=== PATIENT | male | born 1960 | race Caucasian/White ===

== ENCOUNTER 2017-10-05 12:24 | Emergency (ER) | payer OTHER ==
--- NOTE | 2017-10-05 13:53 | ED Physician Documentation ---
PD HPI CHEST PAIN - Stated complaint Stated Complaint: HIGH BP - Chief complaint Chief Complaint: General - History obtained from History obtained from: Patient - History of Present Illness Timing - onset: Today (he has not had chest pain nor dyspnea. He was noted to have very high BP in the office and so had ECG done which showed inverted T waves anteriorly (and pacer capture). PCP talked with [facility], reportedly, and referred to ED for further evaluation. Di not get copy of prior ECG that I can tell though. He went to PCP today due to eyes feeling itchy and watery. No cough nor URI symptoms. Only trigger on the obtaining ECG was that BP was elevated at 190 systolic.) Timing - details: Other (no chest pain nor dyspnea.) Quality: No: Pressure, Tightness Associated symptoms: No: Shortness of air, Diaphoresis, Nausea, Vomiting Recently seen: Not recently seen Review of Systems Constitutional: denies: Fever, Chills, Myalgias Eyes: reports: Irritation (for few days, having watery, red, itchy eyes. He says he did get a Rx from PCP for some eyedrops. He had taken some antihistamine meds for this the past day or two.). denies: Discharge Ears: denies: Ear pain Nose: denies: Rhinorrhea / runny nose, Congestion Throat: denies: Sore throat Cardiac: denies: Chest pain / pressure, Palpitations, Pedal edema, Calf pain Respiratory: denies: Dyspnea, Cough, Wheezing GI: denies: Nausea, Vomiting Skin: denies: Rash Musculoskeletal: denies: Extremity swelling PD PAST MEDICAL HISTORY - Past Medical History Cardiovascular: Hypertension Respiratory: None Neuro: None Endocrine/Autoimmune: None - Past Surgical History Past Surgical History: Yes HEENT: Cochlear implant - Present Medications Home Medications: Ambulatory Orders Medication Instructions Recorded Confirmed Losartan [Cozaar] 100 mg PO DAILY 07/21/14 07/21/14 cloNIDine [Catapres] 0.1 mg PO BID 07/21/14 07/21/14 Aspirin [Kevin] 325 mg PO DAILY 10/05/17 10/05/17 Carvedilol [Coreg] 25 mg PO BID 10/05/17 10/05/17 - Allergies Allergies/Adverse Reactions: Allergies Allergy/AdvReac Type Severity Reaction Status Date / Time No Known Drug Allergies Allergy Verified 10/05/17 12:38 - Social History Does the pt smoke?: No Smoking Status: Never smoker Does the pt drink ETOH?: No Does the pt have substance abuse?: No - Immunizations Immunizations are current?: Yes - POLST Patient has POLST: No PD ED PE NORMAL - Vitals Vital signs reviewed: Yes - General General: Alert and oriented X 3, No acute distress, Well developed/nourished - HEENT HEENT: PERRL (minimal redness without edema of the conjunctiva. ), Pharynx benign - Neck Neck: Supple, no meningeal sign, No adenopathy, No JVD - Cardiac Cardiac: RRR, No murmur - Respiratory Respiratory: Clear bilaterally - Abdomen Abdomen: Soft, Non tender - Derm Derm: Normal color, Warm and dry - Extremities Extremities: No tenderness to palpate, Normal ROM s pain, No edema, No calf tenderness / cord - Neuro Neuro: Alert and oriented X 3, No motor deficit, Normal speech - Psych Psych: Normal mood, Normal affect Results - Vitals Vitals: Vital Signs - 24 hr 10/05/17 10/05/17 10/05/17 12:34 15:38 15:49 Temperature 36.3 C L 36.6 C Heart Rate 69 88 Respiratory 16 18 Rate Blood Pressure 180/94 H 199/116 H 198/114 H O2 Saturation 95 100 Oxygen O2 Source Room air - EKG (time done) 13:39 Rate: Rate (enter#) (61) Rhythm: Paced (with ventricular capture) Ischemia: T wave inversion Compare to prior EKG: Unchanged from prior EKG (obtained from [facility]. The ECG from the office showed more marked T wave inversion anteriorly and somewhat different axis, c/w likely lead transposition. ) - Labs Labs: Laboratory Tests 10/05/17 10/05/17 14:30 14:30 Sodium 139 Potassium 4.7 Chloride 102 Carbon Dioxide 28 Anion Gap 9.0 BUN 22 H Creatinine 1.1 Estimated GFR (MDRD) 69 L Glucose 101 H Calcium 9.5 Magnesium 1.8 Total Bilirubin 1.1 H AST 19 ALT 23 Alkaline Phosphatase 55 Troponin I < 0.04 Total Protein 6.9 Albumin 4.2 Globulin 2.7 Albumin/Globulin Ratio 1.6 Lipase 14 L PD MEDICAL DECISION MAKING - ED course Complexity details: reviewed results (ECG from [facility] had similar pattern to ED ECG. The one from the office today had larger amplitude to the T wave inversions anteriorly and different axis, likely consistent with lead transposition. He is without symptoms. He says his BP has been running high/ normal at 140-160 systolic, so can increase his BP meds some. Given extra dose of Clonidine here. Without symptoms though, would not want to aggressively treat HTN here in ED per AHA JNC recommendations. ), considered differential, d/ w patient Departure - Departure Disposition: 01 Home, Self Care Clinical Impression: Abnormal EKG Hypertension Qualifiers: Hypertension type: unspecified Qualified Code(s): I10 - Essential (primary) hypertension Condition: Stable Record reviewed to determine appropriate education?: Yes Comments: Increase her Catapres to 0.2 twice daily from the 0.1 mg currently. Other medicines the same. Your electrolytes and troponin test are normal here entheses the troponin looks for signs of heart injury). Your EKG from the cardiology office looks similar to the one we did here today. It does not look to be changed significantly. Discharge Date/Time: 10/05/17 15:49
[2017-10-05 14:51] LABS: ALBUMIN 4.2 g/dL (3.2-5.5); ALBUMIN/GLOBULIN RATIO 1.6 (1.0-2.2); BILIRUBIN,TOTAL 1.1 mg/dL (0.2-1.0); CALCIUM 9.5 mg/dL (8.5-10.3); CREATININE 1.1 mg/dL (0.6-1.2); MAGNESIUM 1.8 mg/dL (1.7-2.8); TOTAL PROTEIN 6.9 g/dL (6.7-8.2)
[2017-10-05] MEDS ORDERED: cloNIDine 0.1 MG TABLET PO STA (15:38)
[2017-10-05 15:50] VITALS: BP 198/114
== END 2017-10-05 15:49 | disposition home or self-care (01) ==
LOC: ED 12:24
DX: R94.31 Abnormal electrocardiogram [ECG] [EKG] (principal); I10 Essential (primary) hypertension
CPT/HCPCS: 36415; 80053; 83690; 83735; 84484; 93005; 99283; 99284; A9270

== ENCOUNTER 2017-10-09 23:15 | Outpatient (CLI) | payer OTHER | END 2017-10-09 23:16 | disposition EMS.NT | LOC: EMS 23:15 | PROVIDERS: ATTEND Surgery | DX: R03.0 Elevated blood-pressure reading, without diagnosis of hypertension (principal) ==

== ENCOUNTER 2017-10-31 11:37 | Outpatient (CLI) | payer OTHER | END 2017-10-31 11:38 | disposition home or self-care (01) | LOC: RT 11:37 | PROVIDERS: ATTEND Physician Assistant | DX: I48.91 Unspecified atrial fibrillation (principal); I48.92 Unspecified atrial flutter | CPT/HCPCS: 93005 ==

== ENCOUNTER 2018-10-14 17:39 | Emergency (ER) | payer OTHER ==
[2018-10-14] MEDS ORDERED: HYDROcod/ACETAM 5/325 MG TABLET PO STA (17:58)
[2018-10-14] MEDS ORDERED: TETANUS/DIPHTHERIA/PERTUSSIS 0.5 ML SYRINGE IM ONE (17:58)
--- NOTE | 2018-10-14 18:00 | ED Physician Documentation ---
PD HPI HEAD INJURY - Stated complaint Stated Complaint: GLF - LONG/EYE PX - Chief complaint Chief Complaint: Neuro - History obtained from History obtained from: Patient - History of Present Illness Mechanism of head injury: Fell (He was at work today, missed a step and fell forward onto concrete. He scraped his right hand and both knees and hit his forehead. He has a moderate headache. Tetanus is not up-to-date. No loss of consciousness. He is not anticoagulated.) Review of Systems Constitutional: reports: Reviewed and negative Cardiac: reports: Reviewed and negative Respiratory: reports: Reviewed and negative PD PAST MEDICAL HISTORY - Past Medical History Cardiovascular: Hypertension Respiratory: None Endocrine/Autoimmune: None - Past Surgical History Past Surgical History: Yes Cardiovascular: Pacemaker HEENT: Cochlear implant - Present Medications Home Medications: Ambulatory Orders Medication Instructions Recorded Confirmed Losartan [Cozaar] 100 mg PO DAILY 07/21/14 07/21/14 cloNIDine [Catapres] 0.1 mg PO BID 07/21/14 07/21/14 Aspirin [Kevin] 325 mg PO DAILY 10/05/17 10/05/17 Carvedilol [Coreg] 25 mg PO BID 10/05/17 10/05/17 Hydrocodone/Acetaminophen 1 - 2 each PO Q6H PRN #14 tablet 10/14/18 [Hydrocodon-Acetaminophen 5-325] - Allergies Allergies/Adverse Reactions: Allergies Allergy/AdvReac Type Severity Reaction Status Date / Time No Known Drug Allergies Allergy Verified 10/14/18 17:46 - Social History Does the pt smoke?: No Smoking Status: Never smoker Does the pt drink ETOH?: No Does the pt have substance abuse?: No - Immunizations Immunizations are current?: Yes - POLST Patient has POLST: No PD ED PE NORMAL - Vitals Vital signs reviewed: Yes - General General: Alert and oriented X 3, No acute distress - HEENT HEENT: PERRL, EOMI, Other (There is a small firm hematoma in the lateral left eyebrow, no other facial bony tenderness. No evidence of entrapment.) - Neck Neck: Supple, no meningeal sign, No bony TTP - Extremities Extremities: Other (He has an abrasion over the dorsum of the left fifth MCP without tenderness or limited range of motion. He also has abrasions over both patella but no bony tenderness or limited range of motion or difficulty walking.) - Neuro Neuro: Alert and oriented X 3, Normal speech Eye Opening: Spontaneous Motor: Obeys Commands Verbal: Oriented GCS Score: 15 - Psych Psych: Normal mood, Normal affect Results - Vitals Vitals: Vital Signs - 24 hr 10/14/18 17:43 Temperature 36.0 C L Heart Rate 72 Respiratory 18 Rate Blood Pressure 142/84 H O2 Saturation 97 Oxygen O2 Source Room air - Rads (name of study) Ct head Radiology: EMP read contemporaneously (NAD) Departure - Departure Disposition: Home, Self Care Clinical Impression: Abrasion, right knee, initial encounter, Abrasion, left knee, initial encounter Head injury Qualifiers: Encounter type: initial encounter Qualified Code(s): S09.90XA - Unspecified injury of head, initial encounter Facial contusion Qualifiers: Encounter type: initial encounter Qualified Code(s): S00.83XA - Contusion of other part of head, initial encounter Abrasion of left hand Qualifiers: Encounter type: initial encounter Qualified Code(s): S60.512A - Abrasion of left hand, initial encounter Fall from slip, trip, or stumble Qualifiers: Encounter type: initial encounter Qualified Code(s): W01.0XXA - Fall on same level from slipping, tripping and stumbling without subsequent striking against object, initial encounter Condition: Good Record reviewed to determine appropriate education?: Yes Instructions: ED Head Injury Closed Prescriptions: Hydrocodone/Acetaminophen [Hydrocodon-Acetaminophen 5-325] 1 - 2 each PO Q6H PRN #14 tablet PRN Reason: pain Comments: Call your doctor to arrange a follow-up appointment, make the next available appointment. In the interim, return anytime if worse or if new symptoms develop. Your blood pressure was elevated today on check into the emergency department. This does not mean that you have hypertension, it is a common phenomenon to come to the emergency department and have elevated blood pressure. I recommend that you see your primary care physician within the week to have it rechecked when you are feeling better.
--- NOTE | 2018-10-14 18:52 | CT Report ---
Reason: Head inj Procedure Date: 10/14/2018 Accession Number: [id number] / [id number] Procedure: CT - HEAD WO CPT Code: FULL RESULT: EXAM: CT HEAD EXAM DATE: 10/14/2018 06:37 PM. CLINICAL HISTORY: Head inj. COMPARISON: HEAD 09/26/2006 12:00 PM. TECHNIQUE: Multiaxial CT images were obtained from the foramen magnum to the vertex. Reformats: Sagittal and coronal. IV contrast: None. In accordance with CT protocol optimization, one or more of the following dose reduction techniques were utilized for this exam: automated exposure control, adjustment of mA and/or KV based on patient size, or use of iterative reconstructive technique. FINDINGS: Parenchyma: No intraparenchymal hemorrhage. No evidence of mass, midline shift, or CT findings of infarction. Valladares-white differentiation is distinct. Extraaxial Spaces: Normal for age. No subdural or epidural collections identified. Ventricles: Normal in size and position. Sinuses and Orbits: Imaged paranasal sinuses, orbits, and mastoids show no significant abnormality. Bones: There are findings of a right-sided cochlear implant. Previous right mastoidectomy. Other: None. IMPRESSION: 1. No acute or focal intracranial abnormality. 2. Right cochlear implant appears unremarkable. RADIA
[2018-10-14 19:11] VITALS: BP 107/58
== END 2018-10-14 19:10 | disposition home or self-care (01) ==
LOC: ED 17:39
DX: S09.90XA Unspecified injury of head, initial encounter (principal); S00.83XA Contusion of other part of head, initial encounter; S60.417A Abrasion of left little finger, initial encounter; W01.10XA Fall on same level from slipping, tripping and stumbling with subsequent striking against unspecified object, initial encounter; Y99.0 Civilian activity done for income or pay; I10 Essential (primary) hypertension; Z23 Encounter for immunization
CPT/HCPCS: 1040M; 70450; 90471; 99283

== ENCOUNTER 2019-05-25 09:00 | Outpatient (CLI) | payer BC ==
--- NOTE | 2019-05-26 15:46 | XRAY Report ---
Reason: ACUTE BRONCHITIS Procedure Date: 05/25/2019 Accession Number: [id number] / [id number] Procedure: WCP - Chest 2 View X-Ray CPT Code: 50009 FULL RESULT: EXAM: CHEST RADIOGRAPHY EXAM DATE: 05/25/2019 11:26 AM. CLINICAL HISTORY: Acute bronchitis. Cough and shortness of breath x1 week. COMPARISON: AP chest 07/21/2014. TECHNIQUE: 2 views. FINDINGS: Lungs/Pleura: No focal opacities or vascular congestion. Stable mildly prominent hilar vasculature. No pleural effusion or pneumothorax. Mild hyperinflation. Mediastinum: Normal heart size and mediastinal contour. Interval left subclavian pacer with leads in the right atrial appendage and the right ventricular apex. Other: No acute osseous findings. IMPRESSION: 1. No cardiopulmonary decompensation radiographically. 2. Interval pacemaker in expected position. RADIA
== END 2019-05-25 23:59 | disposition home or self-care (01) ==
LOC: DI.WCP 09:00 → EDSTATUS 12:32 → DI.WCP 23:59
PROVIDERS: ATTEND Physician Assistant Medical
DX: J20.9 Acute bronchitis, unspecified (principal); Z95.0 Presence of cardiac pacemaker
CPT/HCPCS: 71046

== ENCOUNTER 2021-09-11 12:12 | Emergency (ER) | payer OTHER ==
[2021-09-11 12:45] LABS: BASOPHILS % (AUTO) 0.2 %; EOSINOPHILS # (AUTO) 0.1 10^3/uL (0.0-0.7); EOSINOPHILS % (AUTO) 0.6 %; HCT - HEMATOCRIT 49.6 % (42.0-52.0); HGB - HEMOGLOBIN 17.3 g/dL (14.0-18.0); LYMPHOCYTES # (AUTO) 1.1 10^3/uL (1.5-3.5); LYMPHOCYTES % (AUTO) 5.6 %; MEAN CORPUSCULAR HEMOGLOBIN 32.2 pg (27.0-31.0); MEAN CORPUSCULAR HGB CONC 34.9 g/dL (32.0-36.0); MEAN CORPUSCULAR VOLUME 92.4 fL (80.0-94.0); MEAN PLATELET VOLUME 10.1 fL (7.4-11.4); MONOCYTES # (AUTO) 1.7 10^3/uL (0.0-1.0); MONOCYTES % (AUTO) 8.7 %; NEUTROPHILS # (AUTO) 16.3 10^3/uL (1.5-6.6); NEUTROPHILS % (AUTO) 84.4 %; PLT - PLATELET COUNT 303 10^3/uL (130-450); RED BLOOD COUNT 5.37 10^6/uL (4.70-6.10); RED CELL DISTRIBUTION WIDTH 12.1 % (12.0-15.0); WHITE BLOOD COUNT 19.4 x10^3/uL (4.8-10.8)
[2021-09-11 12:58] LABS: ALBUMIN 4.5 g/dL (3.2-5.5); ALBUMIN/GLOBULIN RATIO 1.4 (1.0-2.2); BILIRUBIN,TOTAL 1.3 mg/dL (0.2-1.0); CALCIUM 9.4 mg/dL (8.5-10.3); CREATININE 1.3 mg/dL (0.6-1.2); TOTAL PROTEIN 7.7 g/dL (6.7-8.2)
[2021-09-11 13:01] LABS: SLIDE REVIEW? Indicated
[2021-09-11 13:17] LABS: RBC MORPHOLOGY (MULTIPLE) NORMAL APPEARANCE (NORMAL)
[2021-09-11 13:18] LABS: DIFFERENTIAL COMMENT MANUAL=AUTO DIFF; PLATELET ESTIMATE, MANUAL NORMAL (130-450,000) (NORMAL); PLATELET MORPHOLOGY NORMAL APPEARANCE (NORMAL); WBC MORPHOLOGY (MULTIPLE) NORMAL APPEARANCE (NORMAL)
[2021-09-11] MEDS ORDERED: SODIUM CHLORIDE 0.9% 1,000 ML IV STA (14:21)
[2021-09-11] MEDS ORDERED: HYDROmorphone 1 MG/ML CARPUJECT IVP STA ×2 (14:34→16:28)
[2021-09-11] MEDS ORDERED: ONDANSETRON 4 MG/2 ML VIAL IVP STA (14:34)
[2021-09-11] MEDS ORDERED: iohexoL-300 100 ML VIAL ONE (14:35)
[2021-09-11] MEDS ORDERED: iohexoL-300 100 ML VIAL IVP ONE (15:05)
--- NOTE | 2021-09-11 15:17 | CT Report ---
PROCEDURE: Abdomen/Pelvis W INDICATIONS: abd pain, NV, CONTRAST: IV CONTRAST: Isovue 300 ml: 100 PO CONTRAST: *NO PO CONTRAST TECHNIQUE: After the administration of IV contrast, 5 mm thick sections acquired from the diaphragms to the symp hysis. 5 mm thick coronal and sagittal reformats were acquired. For radiation dose reduction, the f ollowing was used: automated exposure control, adjustment of mA and/or kV according to patient size. COMPARISON: None. FINDINGS: Image quality: Excellent. ABDOMEN: Lung bases: 4 mm solid nodule is seen in posterior medial aspect of left lower lobe series 4 image 23 . Bibasilar linear scarring/atelectasis also seen. Pacemaker leads are noted in right atrium and righ t ventricle. Heart size is normal, no pericardial effusion. Solid organs: Liver and spleen are normal in size and enhancement. Gallbladder is within normal aguilar its Biliary system is non dilated. Pancreas enhances normally. There is peripancreatic fat strandin g involving pancreatic head and uncinate process. No peripancreatic fluid collection. No adrenal nodu les. Kidneys demonstrate normal size and enhancement, without hydronephrosis. Peritoneum and bowel: There is questionable gastric wall thickening which may be due to underdistent ion. Low-grade gastritis cannot be entirely excluded. No discrete gastric wall mass. There is questio nable wall thickening involving third portion of duodenum adjacent to pancreatic head which may repre sent reactive inflammatory changes. Infectious or inflammatory duodenitis cannot be excluded. No othe r area of abnormal bowel wall thickening. No mesenteric fat stranding. No free fluid or free air. Sig moid diverticulosis is seen, no CT evidence of acute diverticulitis. Nodes and vessels: No retroperitoneal or mesenteric adenopathy by size criteria. Aorta and inferior vena cava are normal in size. Miscellaneous: Small umbilical hernia is seen containing fat only. PELVIS: Genitourinary: Bladder wall thickness is normal. Miscellaneous: Bilateral inguinal hernias are seen containing fat only. No inguinal lymphadenopathy. Bones: Bilateral pars defects at L5 level is seen with grade 1 anterolisthesis of L5 on S1 measures up to 1.2 cm in distance. Degenerative endplate changes at L3-4 through L5-S1 levels are seen. No cammy picious bony lesions. No vertebral body compression fractures. IMPRESSION: 1. Inflammatory changes adjacent to head and uncinate process of pancreas concerning for focal pancre atitis in this area suggest clinical correlation. No peripancreatic fluid collection. 2. Questionable gastric wall thickening and wall thickening involving and third portion of duodenum. This may be due to gastric underdistention and reactive inflammatory changes and duodenum secondary t o adjacent inflammation in head of pancreas. Low-grade gastritis and duodenitis cannot be excluded. 3. No bowel obstruction. No free fluid of free air. Sigmoid diverticulosis without CT evidence of acu te diverticulitis. 4. Incidentally noted of 4 mm solid nodule in left lower lobe. Consider CT chest follow-up in 12 reynaldo hs for evaluation of stability. 5. Bilateral pars defects at L5 level with 1.1 cm anterolisthesis of L5 on S1. No acute vertebral bod y compression fracture. Reviewed by: Bautista Strong MD on 09/11/2021 3:15 PM PST Approved by: Bautista Strong MD on 09/11/2021 3:15 PM PST Station ID: [id number]
[2021-09-11 15:39] LABS: BILIRUBIN,URINE NEGATIVE (NEGATIVE); CLARITY,URINE CLEAR (CLEAR); GLUCOSE, URINE (UA) >=1000 mg/dL (NEGATIVE); KETONES,URINE (UA) 15 mg/dL (NEGATIVE); LEUKOCYTE ESTERASE, URINE NEGATIVE (NEGATIVE); NITRITE,URINE NEGATIVE (NEGATIVE); OCCULT BLOOD,URINE NEGATIVE (NEGATIVE); PH,URINE 6.5 PH (5.0-7.5); PROTEIN,URINE 30 mg/dL (NEGATIVE); UROBILINOGEN,URINE 2 E.U./dL (NORMAL)
[2021-09-11 15:47] LABS: BACTERIA,URINE None Seen /HPF (None Seen); RBC,URINE None Seen /HPF (0-5); SQUAMOUS EPITHELIAL CELL,UR NONE SEEN (<= Few); WBC,URINE 0-3 /HPF (0-3)
--- NOTE | 2021-09-11 16:58 | ED Physician Documentation ---
PD HPI ABD PAIN - Stated complaint Stated Complaint: ABD PAIN - Chief complaint Chief Complaint: Abd Pain - History obtained from History obtained from: Patient - Additional information Additional information: Patient comes to the emergency department with chief complaint of upper abdominal pain that wraps around to his back for the past couple of days. He states it is like a deep ache that bores through to the back. He states has been nauseated and has had a few episodes of vomiting since onset of symptoms, but no vomiting since arriving in the emergency department. He denies any stool changes. No fevers or chills. No dysuria. He had pancreatitis once about 15 years ago. He has not had any surgical procedures on his abdomen. No other complaints at this time. Review of Systems Ten Systems: 10 systems reviewed and negative Constitutional: reports: Reviewed and negative Eyes: reports: Reviewed and negative Ears: reports: Reviewed and negative Nose: reports: Reviewed and negative Throat: reports: Reviewed and negative Cardiac: reports: Reviewed and negative Respiratory: reports: Reviewed and negative GI: reports: Abdominal Pain, Nausea, Vomiting : reports: Reviewed and negative Skin: reports: Reviewed and negative Musculoskeletal: reports: Reviewed and negative Neurologic: reports: Reviewed and negative Psychiatric: reports: Reviewed and negative Endocrine: reports: Reviewed and negative Immunocompromised: reports: Reviewed and negative PD PAST MEDICAL HISTORY - Past Medical History Cardiovascular: Hypertension Respiratory: None Endocrine/Autoimmune: None - Past Surgical History Past Surgical History: Yes Cardiovascular: Pacemaker HEENT: Cochlear implant - Present Medications Home Medications: Ambulatory Orders Medication Instructions Recorded Confirmed Losartan [Cozaar] 100 mg PO DAILY 07/21/14 07/21/14 cloNIDine [Catapres] 0.1 mg PO BID 07/21/14 07/21/14 Aspirin [Kevin] 325 mg PO DAILY 10/05/17 10/05/17 Carvedilol [Coreg] 25 mg PO BID 10/05/17 10/05/17 Hydrocodone/Acetaminophen 1 - 2 each PO Q6H PRN #14 tablet 10/14/18 [Hydrocodon-Acetaminophen 5-325] HYDROcod/ACETAM 5/325 [Tonica 5/325] 1 - 2 tablet PO Q6H PRN #14 tablet 09/11/21 Ondansetron Odt [Zofran] 4 mg TL Q6H PRN #10 tablet 09/11/21 - Allergies Allergies/Adverse Reactions: Allergies Allergy/AdvReac Type Severity Reaction Status Date / Time No Known Drug Allergies Allergy Verified 09/11/21 12:21 - Social History Does the pt smoke?: No Smoking Status: Never smoker Does the pt drink ETOH?: No Does the pt have substance abuse?: No - Immunizations Immunizations are current?: Yes - POLST Patient has POLST: No PD ED PE NORMAL - Vitals Vital signs reviewed: Yes - General General: Alert and oriented X 3, No acute distress, Well developed/nourished - HEENT HEENT: Atraumatic, PERRL, EOMI, Moist mucous membranes - Neck Neck: Supple, no meningeal sign - Cardiac Cardiac: RRR, No murmur, Strong equal pulses - Respiratory Respiratory: No respiratory distress, Clear bilaterally - Abdomen Abdomen: Soft, Non distended, Other (Mild tenderness across upper abdomen, No rebound or guarding) - Back Back: No CVA TTP - Derm Derm: Normal color, Warm and dry, No rash - Extremities Extremities: No deformity, No edema - Neuro Neuro: Alert and oriented X 3 - Psych Psych: Normal mood, Normal affect Results - Vitals Vitals: Vital Signs - 24 hr 09/11/21 09/11/21 09/11/21 12:21 15:33 15:52 Temperature 36.5 C 37.4 C Heart Rate 80 68 86 Respiratory 16 14 15 Rate Blood Pressure 137/78 H 124/78 115/97 H O2 Saturation 97 96 95 09/11/21 09/11/21 16:00 17:31 Temperature 37.3 C Heart Rate 84 90 Respiratory 15 16 Rate Blood Pressure 151/87 H 158/80 H O2 Saturation 93 93 Oxygen O2 Source Room air - Labs Labs: Laboratory Tests 09/11/21 09/11/21 09/11/21 12:41 12:41 15:00 WBC 19.4 H RBC 5.37 Hgb 17.3 Hct 49.6 MCV 92.4 MCH 32.2 H MCHC 34.9 RDW 12.1 Plt Count 303 MPV 10.1 Neut # (Auto) 16.3 H Lymph # (Auto) 1.1 L [place] # (Auto) 1.7 H Eos # (Auto) 0.1 Baso # (Auto) 0.0 Absolute Nucleated RBC 0.00 Band Neuts % (Manual) Not Reportable Abnorm Lymph % (Manual) Not Reportable Nucleated RBC % 0.0 Neutrophils # (Manual) Not Reportable Lymphocytes # (Manual) Not Reportable Monocytes # (Manual) Not Reportable Eosinophils # (Manual) Not Reportable Basophils # (Manual) Not Reportable Differential Comment MANUAL=AUTO DIFF Manual Slide Review Indicated WBC Morphology NORMAL APPEARANCE Platelet Estimate NORMAL (130-450,000) Platelet Morphology NORMAL APPEARANCE RBC Morph Micro Appear NORMAL APPEARANCE Sodium 132 L Potassium 4.0 Chloride 93 L Carbon Dioxide 30 Anion Gap 9.0 BUN 20 Creatinine 1.3 H Estimated GFR (MDRD) 56 L Glucose 261 H Calcium 9.4 Total Bilirubin 1.3 H AST 18 ALT 24 Alkaline Phosphatase 61 Total Protein 7.7 Albumin 4.5 Globulin 3.2 Albumin/Globulin Ratio 1.4 Lipase 172 H Urine Color YELLOW Urine Clarity CLEAR Urine pH 6.5 Ur Specific [place] 1.025 Urine Protein 30 H Urine Glucose (UA) >=1000 H Urine Ketones 15 H Urine Occult Blood NEGATIVE Urine Nitrite NEGATIVE Urine Bilirubin NEGATIVE Urine Urobilinogen 2 H Ur Leukocyte Esterase NEGATIVE Urine RBC None Seen Urine WBC 0-3 Ur Squamous Epith Cells NONE SEEN Urine Bacteria None Seen Ur Microscopic Review INDICATED Urine Culture Comments NOT INDICATED - Rads (name of study) CT scan of the abdomen and pelvis Radiology: Final report received, EMP read indepedently, See rad report (Focal pancreatitis; no abnormalities of the biliary system or gallbladder. No pseudocyst or abscess. Possible mild thickening of stomach and third part of duodenum) PD MEDICAL DECISION MAKING - ED course Complexity details: reviewed results, re-evaluated patient, considered differential, d/w patient ED course: Patient was treated symptomatically in the emergency department with IV fluids, Zofran, and Dilaudid. Labs showed a lipase of 172 and a white count of 19,000. Patient sent for CT scan of the abdomen and pelvis, and this showed focal pancreatitis with most likely so sympathetic changes in adjacent structures. I discussed with the patient symptomatic management at home, including clear liquids only for the next 2 days, as well as analgesia and antimedics. We have discussed the indications for return, including development of fever or severe abdominal pain, or the inability to hold the meds down. Patient may otherwise follow-up with his primary care physician. Departure - Departure Disposition: 01 Home, Self Care Clinical Impression: Pancreatitis Qualifiers: Chronicity: acute Pancreatitis type: unspecified pancreatitis type Acute pancreatitis complication: no infection or necrosis Qualified Code(s): K85.90 - Acute pancreatitis without necrosis or infection, unspecified Gastritis Qualifiers: Gastritis type: unspecified gastritis Chronicity: acute Gastritis bleeding: without bleeding Qualified Code(s): K29.00 - Acute gastritis without bleeding Condition: Stable Instructions: ED Pancreatitis Prescriptions: HYDROcod/ACETAM 5/325 [Tonica 5/325] 1 - 2 tablet PO Q6H PRN #14 tablet PRN Reason: Pain Ondansetron Odt [Zofran] 4 mg TL Q6H PRN #10 tablet PRN Reason: Nausea / Vomiting Comments: Your labs showed that you do have a mild elevation of the enzymes produced by your pancreas, which can signal some inflammation of the pancreas. Your CT scan shows that the end of your pancreas is inflamed. This is also causing some inflammation of the part of your stomach and small intestine that are next to the inflamed part of the pancreas. These all together are most likely the cause of your pain and nausea. The good news is that your gallbladder does not appear inflamed at all, and there is no evidence of any kind of blockage. You do not have any gallstones. The rest of your CT scan looked good. Most likely, your decrease in bowel movements is secondary to not eating much, as there is not a large amount of stool in your bowels on CT scan. As we have discussed, pancreatitis generally will go away on its own after a few days, but is greatly helped by taking only clear liquids, to allow the pancreas to rest and heal. The best is if you stick with just water for the next 2 days, though you can drink a sports drink such as Gatorade or an electrolyte solution like Pedialyte. If you tolerate these over the next couple of days, then you may graduate to something with a little more substance, such as some noodle soup or soup broth. You may continue to progress from there if your stomach tolerates this. Please take the nausea and pain medication as needed. If you develop fevers, yellowing of the whites of your eyes, severe pain, or inability to hold your medications down, please return to the emergency department for reevaluation. Your prescriptions have been electronically transmitted to [facility] in [place]. Discharge Date/Time: 09/11/21 17:34
[2021-09-11 17:34] VITALS: BP 158/80
== END 2021-09-11 17:34 | disposition home or self-care (01) ==
LOC: ED 12:12
DX: K85.90 Acute pancreatitis without necrosis or infection, unspecified (principal); K29.00 Acute gastritis without bleeding; I10 Essential (primary) hypertension
CPT/HCPCS: 36415; 74177; 80053; 81001; 83690; 85025; 96361; 96374; 96375; 96376; 99284; J1170; Q9967; 81003; 87086

== ENCOUNTER 2021-09-16 08:00 | Outpatient (CLI) | payer OTHER ==
[2021-09-16 11:45] LABS: BASOPHILS # (AUTO) 0.1 10^3/uL (0.0-0.1); EOSINOPHILS # (AUTO) 0.3 10^3/uL (0.0-0.7); HCT - HEMATOCRIT 49.7 % (42.0-52.0); HGB - HEMOGLOBIN 17.1 g/dL (14.0-18.0); LYMPHOCYTES # (AUTO) 1.3 10^3/uL (1.5-3.5); LYMPHOCYTES % (AUTO) 11.1 %; MEAN CORPUSCULAR HGB CONC 34.4 g/dL (32.0-36.0); MEAN CORPUSCULAR VOLUME 92.9 fL (80.0-94.0); MEAN PLATELET VOLUME 10.3 fL (7.4-11.4); MONOCYTES # (AUTO) 1.1 10^3/uL (0.0-1.0); NEUTROPHILS # (AUTO) 8.4 10^3/uL (1.5-6.6); NEUTROPHILS % (AUTO) 73.8 %; PLT - PLATELET COUNT 379 10^3/uL (130-450); RED BLOOD COUNT 5.35 10^6/uL (4.70-6.10); RED CELL DISTRIBUTION WIDTH 11.9 % (12.0-15.0); WHITE BLOOD COUNT 11.3 x10^3/uL (4.8-10.8)
[2021-09-16 12:10] LABS: ESTIMATED AVERAGE GLUCOSE 220 mg/dL (70-100); HEMOGLOBIN A1c% 9.3 % (4.27-6.07)
[2021-09-16 12:33] LABS: ALBUMIN 3.7 g/dL (3.2-5.5); ALKALINE PHOSPHATASE 64 IU/L (42-121); ALT ALANINE AMINOTRANSFERASE 23 IU/L (10-60); AST ASPARTATE AMINOTRANSFERASE 21 IU/L (10-42); BILIRUBIN,TOTAL 0.9 mg/dL (0.2-1.0); BUN - BLOOD UREA NITROGEN 33 mg/dL (6-20); CALCIUM 9.8 mg/dL (8.5-10.3); CARBON DIOXIDE - CO2 32 mmol/L (21-32); CHLORIDE 90 mmol/L (101-111); CHOL/HDL RATIO 7.6 (<5.0); CHOLESTEROL 228 mg/dL; CREATININE 1.8 mg/dL (0.6-1.2); GFR - MDRD 38 (>89); GLUCOSE 327 mg/dL (70-100); HDL CHOLESTEROL 30 mg/dL; LDL CHOLESTEROL,CALCULATED 154 mg/dL; LDL/HDL RATIO 5.1 (<3.6); LIPASE 30 U/L (22-51); POTASSIUM 3.8 mmol/L (3.5-5.0); SODIUM 133 mmol/L (135-145); TOTAL PROTEIN 7.5 g/dL (6.7-8.2); TRIGLYCERIDES 218 mg/dL; VLDL CHOLESTEROL 44 mg/dL
== END 2021-09-16 23:59 ==
LOC: LAB.WCP 08:00
PROVIDERS: ATTEND Family Medicine
DX: K86.1 Other chronic pancreatitis (principal); E11.9 Type 2 diabetes mellitus without complications
CPT/HCPCS: 36415; 80053; 80061; 83036; 83690; 83721; 85025

== ENCOUNTER 2021-09-29 14:27 | Outpatient (CLI) | payer OTHER ==
--- NOTE | 2021-09-29 16:21 | Ultrasound Report ---
PROCEDURE: Abdomen Complete INDICATIONS: PANCREATITIS TECHNIQUE: Real-time scanning was performed of the abdominal and retroperitoneal organs, with image documentatio n. COMPARISON: None. FINDINGS: Liver: Liver is normal in size and homogeneous in echotexture. Gallbladder: Biliary sludge without shadowing calculi. No pericholecystic fluid or gallbladder wall t hickening. Biliary ducts: Intrahepatic bile ducts are non-dilated. Extrahepatic bile duct caliber measures 3 m m. Normal is 6-7 mm or less in diameter, or 10 mm or less post-cholecystectomy. Pancreas: Obscured by overlying bowel gas Spleen: Spleen is normal in size and homogeneous in echotexture. Kidneys: Kidneys are normal in size and echotexture. Right kidney measures 11.6 cm long; left kidne y measures 10.7 cm long. No hydronephrosis or nephrolithiasis. No solid masses. Renal cortical cys t measures 9 mm. Aorta: Visualized aorta is normal in caliber at less than 3 cm. Iliacs: Proximal common iliac arteries are normal in caliber at less than 2.5 cm. IVC: Intrahepatic inferior vena cava is patent. Miscellaneous: No free abdominal fluid. IMPRESSION: Left renal cortical subcentimeters cyst. No hydronephrosis. Nonvisualized pancreas due to overlying bowel gas. Reviewed by: Edison Lloyd MD on 09/29/2021 3:20 PM [place] Approved by: Edison Lloyd MD on 09/29/2021 3:20 PM AKST Station ID: [id number]
== END 2021-09-29 14:28 | disposition home or self-care (01) ==
LOC: DI 14:27
PROVIDERS: ATTEND Physician Assistant
DX: K85.90 Acute pancreatitis without necrosis or infection, unspecified (principal); N28.1 Cyst of kidney, acquired

== ENCOUNTER 2023-10-20 07:17 | Outpatient (CLI) | payer OTHER ==
[2023-10-20 12:15] LABS: BASOPHILS # (AUTO) 0.1 10^3/uL (0.0-0.1); BASOPHILS % (AUTO) 0.5 %; EOSINOPHILS # (AUTO) 0.3 10^3/uL (0.0-0.7); EOSINOPHILS % (AUTO) 3.3 %; HCT - HEMATOCRIT 51.5 % (42.0-52.0); LYMPHOCYTES # (AUTO) 1.7 10^3/uL (1.5-3.5); LYMPHOCYTES % (AUTO) 18.6 %; MEAN CORPUSCULAR HEMOGLOBIN 31.5 pg (27.0-31.0); MEAN CORPUSCULAR VOLUME 95.4 fL (80.0-94.0); MEAN PLATELET VOLUME 10.7 fL (7.4-11.4); MONOCYTES # (AUTO) 0.7 10^3/uL (0.0-1.0); NEUTROPHILS # (AUTO) 6.4 10^3/uL (1.5-6.6); NEUTROPHILS % (AUTO) 69.2 %; PLT - PLATELET COUNT 324 10^3/uL (130-450); RED CELL DISTRIBUTION WIDTH 12.3 % (12.0-15.0); WHITE BLOOD COUNT 9.3 x10^3/uL (4.8-10.8)
[2023-10-20 12:23] LABS: ESTIMATED AVERAGE GLUCOSE 206 mg/dL (70-100); HEMOGLOBIN A1c% 8.8 % (4.27-6.07)
[2023-10-20 12:35] LABS: ALBUMIN 4.3 g/dL (3.2-5.5); ALBUMIN/GLOBULIN RATIO 1.7 (1.0-2.2); ALKALINE PHOSPHATASE 68 IU/L (42-121); ALT ALANINE AMINOTRANSFERASE 17 IU/L (10-60); AST ASPARTATE AMINOTRANSFERASE 13 IU/L (10-42); BILIRUBIN,TOTAL 0.7 mg/dL (0.2-1.0); BUN - BLOOD UREA NITROGEN 25 mg/dL (6-20); CALCIUM 9.8 mg/dL (8.5-10.3); CARBON DIOXIDE - CO2 30 mmol/L (21-32); CHLORIDE 100 mmol/L (101-111); CHOL/HDL RATIO 4.3 (<5.0); CHOLESTEROL 178 mg/dL; CREATININE 1.2 mg/dL (0.6-1.3); GFR - MDRD 61 (>89); GLUCOSE 278 mg/dL (74-104); HDL CHOLESTEROL 41 mg/dL; LDL CHOLESTEROL,CALCULATED 107 mg/dL; LDL/HDL RATIO 2.6 (<3.6); POTASSIUM 4.8 mmol/L (3.5-4.5); SODIUM 135 mmol/L (135-145); TOTAL PROTEIN 6.9 g/dL (6.4-8.9); TRIGLYCERIDES 151 mg/dL (48-352); VLDL CHOLESTEROL 30 mg/dL
[2023-10-20 12:42] LABS: THYROID STIMULATING HORMONE 2.43 uIU/mL (0.34-5.60)
[2023-10-20 12:44] LABS: CREATININE,URINE 168.1 mg/dL; MICROALBUM/CREATININE RATIO,UR 11.9 ug/mg (<30.0)
== END 2023-10-20 07:18 | disposition home or self-care (01) ==
LOC: LAB.N 07:17
PROVIDERS: ATTEND Physician Assistant
DX: I10 Essential (primary) hypertension (principal); E11.9 Type 2 diabetes mellitus without complications; E78.5 Hyperlipidemia, unspecified; Z12.5 Encounter for screening for malignant neoplasm of prostate
CPT/HCPCS: 36415; 80053; 80061; 82043; 82570; 83036; 83721; 84153; 84443; 85025

== ENCOUNTER 2024-04-06 11:54 | Emergency (ER) | payer OTHER, MEDICARE ==
[2024-04-06 12:34] VITALS: BP 109/65; O2SAT 97
--- NOTE | 2024-04-06 12:34 | Ultrasound Report ---
PROCEDURE: Duplex Ext Veins Left INDICATIONS: leg pain TECHNIQUE: Real-time imaging, as well as color and pulse Doppler interrogation, were performed of the lower extr emity deep veins from the inguinal ligament to the popliteal fossa. Attempted visualization of the ca lf veins was performed. COMPARISON: None. FINDINGS: Nonocclusive clot is present in the left popliteal vein. There is occlusive thrombus in the left posterior tibial veins and peroneal veins. IMPRESSION: Nonocclusive DVT involving the popliteal vein. Occlusive DVT in the calf. Reviewed by: William Humphrey MD on 04/06/2024 12:32 PM PDT Approved by: William Humphrey MD on 04/06/2024 12:32 PM PDT Station ID: [id number]
--- NOTE | 2024-04-06 12:41 | ED Physician Documentation ---
History of Present Illness - Stated complaint Stated Complaint: SWOLLEN LT LEG, PCP REFERAL - Chief complaint Chief Complaint: Ext Problem - History obtained from History obtained from: Patient - Additonal information Additional information: He has no history of thromboembolic disease. Did have A-fib and has PPM in place but not on anticoagulant. For last week he said soreness in his left calf without trauma, recent immobility or travel. No chest pain or trouble breathing. PD PAST MEDICAL HISTORY - Past Medical History Cardiovascular: Hypertension Respiratory: None Endocrine/Autoimmune: Type 2 diabetes GI: Pancreatitis - Past Surgical History Past Surgical History: Yes Cardiovascular: Pacemaker HEENT: Cochlear implant - Present Medications Home Medications: Ambulatory Orders Medication Instructions Recorded Confirmed Losartan [Cozaar] 100 mg PO DAILY 07/21/14 11/07/21 cloNIDine [Catapres] 0.1 mg PO BID 07/21/14 11/07/21 carvediloL [Coreg] 25 mg PO BID 10/05/17 11/07/21 Hydrocodone/Acetaminophen 1 - 2 each PO Q6H PRN #14 tablet 10/14/18 11/07/21 [Hydrocodon-Acetaminophen 5-325] Ondansetron Odt [Zofran] 4 mg TL Q6H PRN #10 tablet 09/11/21 11/07/21 Chlorthalidone 25 mg PO DAILY 11/07/21 11/07/21 Famotidine 40 mg PO DAILY 11/07/21 11/07/21 Apixaban [Eliquis] 2 tab PO BID #208 tab 04/06/24 - Allergies Allergies/Adverse Reactions: Allergies Allergy/AdvReac Type Severity Reaction Status Date / Time No Known Drug Allergies Allergy Verified 04/06/24 12:39 - Social History Does the pt smoke?: No Smoking Status: Never smoker Does the pt drink ETOH?: No Does the pt have substance abuse?: No - Immunizations Immunizations are current?: Yes - POLST Patient has POLST: No PD ED PE NORMAL - Vitals Vital signs reviewed: Yes - General General: Alert and oriented X 3, No acute distress - Extremities Extremities: Other (Mild calf tenderness with good pedal pulses. No obvious swelling. Some varicosities posteriorly.) - Neuro Neuro: Alert and oriented X 3, Normal speech Results - Vitals Vitals: Vital Signs - 24 hr 04/06/24 12:10 Temperature 36.7 C Heart Rate 91 Respiratory 15 Rate Blood Pressure 109/65 O2 Saturation 97 Oxygen O2 Source Room air PD Medical Decision Making - ED course ED course: He was sent from walk-in clinic for rule out DVT and he does have a calf DVT and is started on Eliquis. Discussed with patient and he should probably follow-up with hematology as there is no clear reason for him to have a DVT i.e. no recent travel, immobilization, history of same etc. Departure - Departure Disposition: Home, Self Care Clinical Impression: Deep vein thrombosis Condition: Good Record reviewed to determine appropriate education?: Yes Instructions: ED DVT Follow-Up: Nba Gunn MD [Provider Admit Priv/Credential] - Prescriptions: Apixaban [Eliquis] 2 tab PO BID #208 tab Comments: I sent your prescription for the blood thinner electronically to the [facility] in [place]. You were seen for a DVT, blood clot, and your left leg. Since there is no identifiable reason for this, I do recommend you follow-up with a high school social science teacher. 1 is listed on this form but she may need a formal referral from your physician. Return for new or worsening symptoms. Forms: PCP List Discharge Date/Time: 04/06/24 12:46
== END 2024-04-06 12:46 | disposition home or self-care (01) ==
LOC: ED 11:54
DX: I82.4Z2 Acute embolism and thrombosis of unspecified deep veins of left distal lower extremity (principal); I82.432 Acute embolism and thrombosis of left popliteal vein; I10 Essential (primary) hypertension; E11.9 Type 2 diabetes mellitus without complications; I48.91 Unspecified atrial fibrillation; Z79.899 Other long term (current) drug therapy
CPT/HCPCS: 99283; 99284